=== PATIENT | male | born 1975 | race Caucasian/White ===

== ENCOUNTER 2017-08-23 18:39 | Inpatient (IN) | payer OTHER ==
[~2017-08-23] VITALS: Ht 175.2 cm; Wt 81.0 kg
--- NOTE | ~2017-08-23 | CON ---
[place], [place] REPORT OF CONSULTATION NAME: GEORGIA JAMA UNIT #: [id number] ROOM: 530 DOCTOR: ROSCOE COLBY MD BIRTHDATE: [birth year] DOS: 08/24/2017 REASON FOR CONSULTATION: Chest pain. HISTORY OF PRESENT ILLNESS: The patient is a 42-year-old man who has a history of atypical chest pain, which he believes is mostly brought on by stress. He has been evaluated in the past with a stress test in [place] about 3 years ago. At that time, he was told that everything looked good. Recently, he has been under considerable stress because of family issues with his mother in hospice. He has noticed for the last few weeks that his chest has been hurting. He specifically notes that his left upper outer chest is sore. Last evening after having supper with his mom, he developed chest pain with radiation to his neck, associated with dyspnea and lightheadedness. He became very concerned and therefore came to the Emergency Room. His electrocardiogram was negative and cardiac biomarkers have been negative. The patient does have risk factors of cigarette abuse. His lipids are mildly elevated. His father had a heart attack and a stroke. 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 He has had no surgeries. MEDICATIONS PRIOR TO ADMISSION: Aspirin 81 mg daily and propranolol 60 mg daily. ALLERGIES: The patient has no known drug allergies. REVIEW OF SYSTEMS: The patient denies diplopia or loss of vision. He denies syncope. He did have lightheadedness with chest pain last evening. He denies nausea or vomiting. He denies fevers, chills, sweats or recent weight change. He denies orthopnea or PND and denies focal weakness. He denies hemoptysis or hematemesis. He has had palpitations and chest discomfort as noted. He denies change in bowel or bladder habits. He denies blood in the stools or urine. He denies peripheral edema. He has not had any new skin rashes. He denies heat or cold intolerance and denies polyuria or polydipsia. The remainder of the review of systems is negative except as noted above. SOCIAL HISTORY: The patient smokes anywhere from a few cigarettes to a pack of cigarettes a day. He smokes more when he is under stress and has been under stress lately. He is physically active and does a lot of walking. PHYSICAL EXAMINATION: GENERAL: The patient is well-nourished white male who is awake, alert and oriented. VITAL SIGNS: Pulse is 60 and regular, blood pressure is 108/68. He is afebrile. He weighs 81 kg and has a body mass index of 26.4. HEENT: Normocephalic and atraumatic. Extraocular muscles are intact. Sclerae are clear. Pupils are equal, round and react to light. The oral mucosa is moist. Tongue is midline. NECK: Supple. He has no jugular distention. Carotids are full. He has no [place], [place] REPORT OF CONSULTATION NAME: GEORGIA JAAM UNIT #: [id number] ROOM: [facility] DOCTOR: ROSCOE COLBY MD BIRTHDATE: [birth year] bruits. He has no neck or supraclavicular masses. LUNGS: Respirations are unlabored. His chest is clear to auscultation and percussion. he has no presacral edema or chest wall tenderness. CARDIOVASCULAR: His heart has a regular rhythm. He has a fourth heart sound, but no third heart sound or murmur. The PMI is not displaced. There is no precordial heave, lift or thrill. ABDOMEN: Soft and normally active without masses, organomegaly or bruits. EXTREMITIES: Showed no edema. There are no cords or tenderness. Pedal pulses are full and equal bilaterally. LABORATORY DATA: I reviewed his electrocardiogram, it showed sinus rhythm and was a normal tracing. Serial cardiac biomarkers have been normal. Chest x-ray shows no cardiopulmonary processes. IMPRESSION: 1. Atypical chest pain. 2. Cigarette abuse. 3. Significant life stresses. PLAN: We will proceed with an exercise myocardial perfusion study. Further recommendations will depend upon the results of the stress test. The patient was encouraged to stop smoking and to try to practice some healthier lifestyle. I thank Dr. Johns for asking our advice regarding the patient's evaluation and care. ROSCOE COLBY MD CM:CONSTR:REPORT OF CONSULTATION 0935 08/24/17 0951 interface
--- NOTE | ~2017-08-23 | WRIGHTHP ---
[place], [place] PATIENT HISTORY AND PHYSICAL EXAM NAME: GEORGIA JAMA UNIT #: [id number] ROOM: 530 DOCTOR: CAMRON MARQUEZ MD BIRTHDATE: [birth year] DOS: 08/23/2017 HISTORY OF PRESENT ILLNESS: The patient is 42 years old. The patient was seen in the office on Monday with complaints of chest pain. He was advised admission, but refused. He was scheduled for a stress test as an outpatient. Yesterday, while he was driving, he had more chest pain associated with some dizziness and lightheadedness. He felt he was going to pass out. He has checked his blood pressure multiple times and felt it was going up. He has been at his mother's bedside for the last 30 days. She is sick and actively dying. He denies having any abdominal pain, nausea, any emesis, any fever, chills, any shortness of breath, or palpitations. PAST MEDICAL HISTORY: None significant. SOCIAL HISTORY: He has never been hospitalized. His father . His mother is actively dying from immunodeficiency. His siblings are healthy, they do not have any medical problems. 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 He has to go back to work tomorrow. OBJECTIVE: VITAL SIGNS: Graphic trend shows a pressure of 108/68, pulse of 61, respirations 20, temperature 97.7. LUNGS: Diminished breath sounds. No wheezes, rales or rhonchi heard. HEART: Regular. ABDOMEN: Obese, soft, nontender. EXTREMITIES: Without any edema. LABORATORY DATA: Within normal limits except for a vitamin D of 10. ASSESSMENT AND PLAN: 1. Precordial chest pain, ruled out for myocardial infarction. Awaiting a stress test. Cardiology consult obtained, echocardiogram was ordered. 2. The patient most likely has anxiety from his mother's illness and the fact that he has to go back to work tomorrow to [place]. The patient is a low risk for underlying heart disease, may need to see his PCP for some mild anxiety medications. [place], [place] PATIENT HISTORY AND PHYSICAL EXAM NAME: GEORGIA JAMA UNIT #: [id number] ROOM: 530 DOCTOR: CAMRON MARQUEZ MD BIRTHDATE: [birth year] CAMRON MARQUEZ MD CM:HISPHYS:PATIENT HISTORY AND PHYSICAL EXAMINATION 0940 CAMRON MARQUEZ MD 08/24/17 1014 interface
[~2017-08-23 18:39] MED LIST: AMOXICILLIN500 MG PO; ANAPROX DS550 MG PO; ANTIVERT/2525 MG PO; CLARITIN10 MG PO; FLAGYL500 MG PO; MOTRIN800 MG PO; NAPROSYN500 MG PO; NKHM; PENICILLIN VK500 MG PO; ROBITUSSIN-AC 160 ML PO; SEPTRA DS 800 M1 TAB PO; VIBRAMYCIN100 MG PO; ZOFRAN4 MG PO
[2017-08-23 19:05] VITALS: BP 126/74
[2017-08-23 19:06] LABS: HEMOGLOBIN 16.2 g/dl (14.0-18.0); MEAN CELL VOLUME 89.2 fl (80.0-94.0); MEAN CORPUSCULAR HGB 30.7 pg (27.0-31.0); MEAN CORPUSCULAR HGB CONC 34.5 g/dl (33.0-37.0); MEAN PLATELET VOLUME 11.7 fl (9.6-12.3); PLATELET COUNT AUTOMATED 243 10*3/uL (130-400); RED BLOOD COUNT 5.27 10*6/uL (4.50-5.90); WHITE BLOOD COUNT 13.1 10*3/uL (4.8-10.8)
[2017-08-23 19:13] VITALS: BP 132/89
[2017-08-23 19:19] LABS: ACT PARTIAL THROMBO TIME 23.3 SECONDS (20.8-31.5)
[2017-08-23 19:23] LABS: ALKALINE PHOSPHATASE 90 U/L (45-117); BUN 12 mg/dl (7-24); CHLORIDE 103 mmol/L (98-107); CREATININE 1.03 mg/dL (0.70-1.30); POTASSIUM 4.1 mmol/L (3.5-5.1); SGOT/AST 19 IU/L (3-35); SGPT/ALT 36 U/L (12-78); SODIUM 138 mmol/L (136-145); TOTAL PROTEIN 7.6 gm/dL (6.4-8.2)
[2017-08-23 19:24] LABS: TROPONIN I < 0.015 ng/ml (<0.045)
[2017-08-23 19:25] LABS: BASOPHILS 2 % (0-1); PLATELET SUFFICIENCY NORMAL (NORMAL); TOTAL CELLS COUNTED 100 #CELLS
[2017-08-23 19:32] VITALS: BP 120/69
[2017-08-23 19:53] VITALS: BP 107/66
[2017-08-23 20:29] VITALS: BP 123/75
[2017-08-23] MEDS ORDERED: PROPRANOLOL HCL60 M1 PO (21:50)
[2017-08-23] MEDS ORDERED: ASPIRIN ADULT L81 M1 PO (21:50)
[2017-08-23 22:30] VITALS: BP 133/80
[2017-08-24] VITALS: BP 124/86
[2017-08-24 08:00] VITALS: BP 108/68
[2017-08-24 12:41] VITALS: BP 110/69
== END 2017-08-24 12:12 | disposition home or self-care (01) | DRG 313 ==
LOC: ED 18:39 → EDHOLD 21:12 → 5E 21:12
PROVIDERS: Emergency Medicine
PROC: 3E033HZ Introduction of Radioactive Substance into Peripheral Vein, Percutaneous Approach (ICD-10-PCS; principal; 2017-08-24)
PROC: 4A02XM4 Measurement of Cardiac Total Activity, External Approach (ICD-10-PCS; principal; 2017-08-24)
DX: R07.89 Other chest pain (principal); L51.1 Stevens-Johnson syndrome; F17.210 Nicotine dependence, cigarettes, uncomplicated; Z82.49 Family history of ischemic heart disease and other diseases of the circulatory system

== ENCOUNTER 2019-06-23 18:28 | Emergency (ER) | payer OTHER ==
[~2019-06-23] VITALS: Ht 175.2 cm; Wt 95.3 kg
[~2019-06-23 18:28] MED LIST changes: +ASPIRIN ADULT L81 M1 PO; +PROPRANOLOL HCL60 M1 PO
[2019-06-23 19:10] LABS: BASO # 0.1 10*3/uL (0.0-0.1); BASO % 0.8 % (0.0-1.0); EOS # 0.3 10*3/uL (0.0-0.4); EOS % 2.4 % (1.0-4.0); HEMATOCRIT 50.2 % (42.0-52.0); HEMOGLOBIN 16.9 g/dl (14.0-18.0); LYMPH % 30.8 % (27.0-41.0); MEAN CELL VOLUME 90.1 fl (80.0-94.0); MEAN CORPUSCULAR HGB 30.3 pg (27.0-31.0); MEAN CORPUSCULAR HGB CONC 33.7 g/dl (33.0-37.0); MEAN PLATELET VOLUME 11.6 fl (9.6-12.3); MONO # 1.1 10*3/uL (0.1-1.0); MONO % 8.1 % (3.0-9.0); NEUT # 7.4 10*3/uL (2.3-7.9); NEUT % 57.4 % (47.0-73.0); PLATELET COUNT AUTOMATED 230 10*3/uL (130-400); RED BLOOD COUNT 5.57 10*6/uL (4.50-5.90); RED CELL DISTRI WIDTH 12.9 % (0-14.5)
[2019-06-23 19:25] LABS: ALBUMIN 3.7 gm/dl (3.1-4.5); ALKALINE PHOSPHATASE 84 U/L (45-117); BUN 10 mg/dl (7-24); CHLORIDE 108 mmol/L (98-107); CREATININE 1.03 mg/dL (0.70-1.30); POTASSIUM 3.7 mmol/L (3.5-5.1); SGOT/AST 19 IU/L (3-35); SGPT/ALT 41 U/L (12-78); SODIUM 139 mmol/L (136-145); TOTAL PROTEIN 7.2 gm/dL (6.4-8.2)
[2019-06-23 19:47] VITALS: BP 131/86
[2019-06-23] MEDS ORDERED: PREDNISONE20 M1 PO (20:16)
== END 2019-06-23 20:25 | disposition home or self-care (01) ==
LOC: ED 18:28
PROVIDERS: Physician Assistant
DX: R11.10 Vomiting, unspecified (principal); L27.0 Generalized skin eruption due to drugs and medicaments taken internally; T43.225A Adverse effect of selective serotonin reuptake inhibitors, initial encounter; R22.0 Localized swelling, mass and lump, head; Z88.8 Allergy status to other drugs, medicaments and biological substances; Z79.899 Other long term (current) drug therapy; Z79.82 Long term (current) use of aspirin; Y92.89 Other specified places as the place of occurrence of the external cause

== ENCOUNTER 2019-11-01 16:12 | Observation (INO) | payer OTHER ==
[~2019-11-01] VITALS: Ht 175.2 cm; Wt 86.8 kg
[2019-11-01] VITALS: BP 141/77
[~2019-11-01 16:12] MED LIST changes: +PREDNISONE20 M1 PO
[2019-11-01 16:24] VITALS: BP 164/95
[2019-11-01 16:49] LABS: BASO # 0.1 10*3/uL (0.0-0.1); BASO % 0.5 % (0.0-1.0); EOS # 0.3 10*3/uL (0.0-0.4); EOS % 1.7 % (1.0-4.0); HEMATOCRIT 47.8 % (42.0-52.0); LYMPH # 3.6 10*3/uL (1.3-4.4); LYMPH % 23.7 % (27.0-41.0); MEAN CELL VOLUME 94.7 fl (80.0-94.0); MEAN CORPUSCULAR HGB 31.9 pg (27.0-31.0); MEAN CORPUSCULAR HGB CONC 33.7 g/dl (33.0-37.0); MEAN PLATELET VOLUME 10.4 fl (9.6-12.3); MONO % 6.7 % (3.0-9.0); NEUT % 66.5 % (47.0-73.0); PLATELET COUNT AUTOMATED 241 10*3/uL (130-400); RED BLOOD COUNT 5.05 10*6/uL (4.50-5.90); RED CELL DISTRI WIDTH 13.7 % (0-14.5)
[2019-11-01 16:58] LABS: ACT PARTIAL THROMBO TIME 24.1 SECONDS (20.0-32.1); INTERNATIONAL NORM RATIO 0.9 (2.0-3.5)
[2019-11-01 17:06] LABS: ALBUMIN 3.5 gm/dl (3.1-4.5); ALKALINE PHOSPHATASE 81 U/L (45-117); BUN 12 mg/dl (7-24); CHLORIDE 105 mmol/L (98-107); CREATININE 1.01 mg/dL (0.70-1.30); POTASSIUM 3.7 mmol/L (3.5-5.1); SGOT/AST 14 IU/L (3-35); SGPT/ALT 38 U/L (12-78); SODIUM 138 mmol/L (136-145); TOTAL PROTEIN 6.9 gm/dL (6.4-8.2)
[2019-11-01 17:08] LABS: TROPONIN I < 0.015 ng/ml (<0.045)
[2019-11-01 17:48] VITALS: BP 114/88
[2019-11-01 18:42] VITALS: BP 144/88
[2019-11-01] MEDS ORDERED: LIPITOR40 MG PO (18:42)
[2019-11-01] MEDS ORDERED: OMEPRAZOLE20 M2 PO (18:43)
[2019-11-01 20:00] VITALS: BP 144/88
--- NOTE | 2019-11-01 20:12 | NUR ---
24 HR chart check completed.
--- NOTE | 2019-11-01 21:00 | NUR ---
RESTING IN BED WITH NO ACUTE DISTRESS NOTED. RESPIRATIONS EASY. LUNGS DIMINISHED, CLEAR. PULSE OX 97% RA. DENIES CHEST PAIN. CALL LIGHT WITHIN REACH. NO VOICED COMPLAINTS.
--- NOTE | 2019-11-01 23:04 | NUR ---
MEDICATED WITH TYLENOL PER PRN ORDER FOR COMPLAINTS OF HEADACHE RATING A 5. CALL LIGHT WITHIN REACH. WILL MONITOR
[2019-11-02] VITALS: BP 141/77
--- NOTE | 2019-11-02 | NUR ---
MEDS APPEAR EFFECTIVE. SLEEPING. RESPIRATIONS EASY. VSS. CALL LIGHT WITHIN REACH.
--- NOTE | 2019-11-02 06:00 | NUR ---
SLEPT THROUGHOUT NIGHT WITH NO DISTRESS NOTED. RESPIRATIONS EASY. DENIES CHEST PAIN. CALL LIGHT WITHIN REACH. NO VOICED COMPLAINTS THIS SHIFT
--- NOTE | 2019-11-02 11:04 | NUR ---
PT SIGNED OUT AGAINST MEDICAL ADVICE AT THIS TIME. HEPLOCK AND ENTRY ANALYST REMOVED BEFORE DEPARTURE.
== END 2019-11-02 11:04 | disposition left against medical advice (07) ==
LOC: ED 16:12 → 4E 18:24
PROVIDERS: Emergency Medicine; ADMIT Internal Medicine
DX: R07.89 Other chest pain (principal)

== ENCOUNTER → 2020-09-09 | Outpatient (CLI) | payer SELFPAY ==
[~2020-09-09] MED LIST changes: +LIPITOR40 MG PO; +OMEPRAZOLE20 M2 PO
== END | disposition home or self-care (01) ==
LOC: LAB 15:05
PROVIDERS: ATTEND Nurse Practitioner
DX: J06.9 Acute upper respiratory infection, unspecified (principal)

== ENCOUNTER 2020-12-09 07:11 | Emergency (ER) | payer OTHER ==
[~2020-12-09] VITALS: Wt 88.5 kg
[2020-12-09 07:42] LABS: BASO # 0.1 10*3/uL (0.0-0.1); BASO % 0.8 % (0.0-1.0); EOS # 0.4 10*3/uL (0.0-0.4); EOS % 4.3 % (1.0-4.0); HEMATOCRIT 46.6 % (42.0-52.0); LYMPH # 3.2 10*3/uL (1.3-4.4); LYMPH % 35.4 % (27.0-41.0); MEAN CELL VOLUME 88.8 fl (80.0-94.0); MEAN CORPUSCULAR HGB 30.7 pg (27.0-31.0); MEAN CORPUSCULAR HGB CONC 34.5 g/dl (33.0-37.0); MEAN PLATELET VOLUME 10.9 fl (9.6-12.3); MONO # 0.8 10*3/uL (0.1-1.0); MONO % 8.7 % (3.0-9.0); NEUT # 4.5 10*3/uL (2.3-7.9); NEUT % 50.6 % (47.0-73.0); PLATELET COUNT AUTOMATED 236 10*3/uL (130-400); RED BLOOD COUNT 5.25 10*6/uL (4.50-5.90); RED CELL DISTRI WIDTH 13.7 % (0-14.5); WHITE BLOOD COUNT 8.9 10*3/uL (4.8-10.8)
[2020-12-09] MEDS ORDERED: ATIVAN0.5 MG PO (07:42)
[2020-12-09 07:52] LABS: ACT PARTIAL THROMBO TIME 25.7 SECONDS (20.0-32.1)
[2020-12-09 08:00] LABS: ALBUMIN 3.4 gm/dl (3.1-4.5); ALKALINE PHOSPHATASE 94 U/L (45-117); BUN 7 mg/dl (7-24); CHLORIDE 108 mmol/L (98-107); CREATININE 0.97 mg/dL (0.70-1.30); LIPASE 90 U/L (73-393); POTASSIUM 3.9 mmol/L (3.5-5.1); SGOT/AST 14 IU/L (3-35); SGPT/ALT 34 U/L (12-78); SODIUM 139 mmol/L (136-145); TOTAL PROTEIN 6.9 gm/dL (6.4-8.2)
[2020-12-09 08:02] LABS: TROPONIN I < 0.015 ng/ml (<0.045)
[2020-12-09 09:54] VITALS: BP 126/71
[2020-12-09] MEDS ORDERED: Motrin,Rufen800 MG PO (10:19)
== END 2020-12-09 10:23 | disposition home or self-care (01) ==
LOC: ED 07:11
PROVIDERS: Emergency Medicine
DX: S16.1XXA Strain of muscle, fascia and tendon at neck level, initial encounter (principal); R42 Dizziness and giddiness; R51.9 Headache, unspecified; Z79.899 Other long term (current) drug therapy; X58.XXXA Exposure to other specified factors, initial encounter; Y93.89 Activity, other specified; Y92.89 Other specified places as the place of occurrence of the external cause; Y99.8 Other external cause status

== ENCOUNTER 2022-02-22 11:40 | Emergency (ER) | payer OTHER ==
[~2022-02-22] VITALS: Wt 79.4 kg
[~2022-02-22 11:40] MED LIST changes: +ATIVAN0.5 MG PO; +Motrin,Rufen800 MG PO
[2022-02-22 11:48] VITALS: BP 129/81
[2022-02-22] MEDS ORDERED: PROVENTIL HFA6.7 GM INH (14:15)
[2022-02-22] MEDS ORDERED: PREDNISONE20 M1 PO (14:15)
== END 2022-02-22 14:24 | disposition home or self-care (01) ==
LOC: ED 11:40
DX: R53.83 Other fatigue (principal); Z20.822 Contact with and (suspected) exposure to COVID-19; R50.9 Fever, unspecified; R11.10 Vomiting, unspecified

== ENCOUNTER 2022-07-19 08:52 | Emergency (ER) | payer OTHER ==
[~2022-07-19] VITALS: Ht 182.8 cm; Wt 104.3 kg
[~2022-07-19 08:52] MED LIST changes: +PROVENTIL HFA6.7 GM INH
[2022-07-19 09:31] VITALS: BP 145/89
[2022-07-19 09:37] LABS: BASO # 0.1 10*3/uL (0.0-0.1); BASO % 0.7 % (0.0-1.0); EOS # 0.3 10*3/uL (0.0-0.4); EOS % 2.7 % (1.0-4.0); HEMATOCRIT 47.9 % (42.0-52.0); LYMPH # 3.2 10*3/uL (1.3-4.4); LYMPH % 31.5 % (27.0-41.0); MEAN CELL VOLUME 88.7 fl (80.0-94.0); MEAN CORPUSCULAR HGB 29.8 pg (27.0-31.0); MEAN CORPUSCULAR HGB CONC 33.6 g/dl (33.0-37.0); MEAN PLATELET VOLUME 10.4 fl (9.6-12.3); MONO # 0.8 10*3/uL (0.1-1.0); MONO % 7.7 % (3.0-9.0); NEUT # 5.7 10*3/uL (2.3-7.9); NEUT % 56.3 % (47.0-73.0); PLATELET COUNT AUTOMATED 301 10*3/uL (130-400); RED CELL DISTRI WIDTH 13.2 % (0-14.5); WHITE BLOOD COUNT 10.2 10*3/uL (4.8-10.8)
[2022-07-19 09:53] LABS: ALKALINE PHOSPHATASE 100 U/L (46-116); BUN 9 mg/dl (9-23); CHLORIDE 104 mmol/L (98-107); POTASSIUM 3.9 mmol/L (3.4-5.1); SGPT/ALT 37 U/L (10-49)
== END 2022-07-19 11:00 | disposition home or self-care (01) ==
LOC: ED 08:52
PROVIDERS: Emergency Medicine
DX: U07.1 COVID-19 (principal); Z87.891 Personal history of nicotine dependence

== ENCOUNTER 2024-08-17 13:32 | Emergency (ER) | payer OTHER ==
[~2024-08-17] VITALS: Ht 175.2 cm; Wt 79.1 kg
[2024-08-17] MEDS ORDERED: Ondansetron Hydrochloride 4 MG/2 ML VIAL IV ONE (14:25)
[2024-08-17] MEDS ORDERED: SODIUM CHLORIDE 0.9% 1,000 ML IV ONE (14:25)
[2024-08-17] MEDS ORDERED: FAMOTIDINE 20 MG TAB PO ONE (14:30)
[2024-08-17 14:38] LABS: BASO # 0.1 10*3/uL (0.0-0.1); BASO % 0.6 % (0.0-1.0); EOS % 0.1 % (1.0-4.0); HEMATOCRIT 47.2 % (42.0-52.0); MEAN CORPUSCULAR HGB 30.6 pg (27.0-31.0); MEAN CORPUSCULAR HGB CONC 33.3 g/dl (33.0-37.0); MEAN PLATELET VOLUME 9.8 fl (9.6-12.3); MONO # 1.1 10*3/uL (0.1-1.0); MONO % 13.6 % (3.0-9.0); NEUT # 5.1 10*3/uL (2.3-7.9); NEUT % 65.3 % (47.0-73.0); PLATELET COUNT AUTOMATED 257 10*3/uL (130-400); RED BLOOD COUNT 5.13 10*6/uL (4.50-5.90); RED CELL DISTRI WIDTH 13.5 % (0-14.5); WHITE BLOOD COUNT 7.9 10*3/uL (4.8-10.8)
[2024-08-17 14:59] LABS: ALKALINE PHOSPHATASE 99 U/L (46-116); BUN 7 mg/dl (9-23); CHLORIDE 103 mmol/L (98-107); SGPT/ALT 18 U/L (5-49); TOTAL PROTEIN 7.5 gm/dL (6.0-8.0)
[2024-08-17] MEDS ORDERED: Ondansetron4 MG PO (15:32)
[2024-08-17 16:00] VITALS: BP 135/96
== END 2024-08-17 15:28 | disposition home or self-care (01) ==
LOC: ED 13:32
PROVIDERS: Nurse Practitioner
DX: A08.11 Acute gastroenteropathy due to Norwalk agent (principal); I10 Essential (primary) hypertension; F17.200 Nicotine dependence, unspecified, uncomplicated; Z79.899 Other long term (current) drug therapy; Z20.822 Contact with and (suspected) exposure to COVID-19

== ENCOUNTER 2025-06-26 11:23 | Emergency (ER) | payer OTHER ==
[~2025-06-26] VITALS: Wt 83.9 kg
[~2025-06-26 11:23] MED LIST changes: +Ondansetron4 MG PO
[2025-06-26 11:34] VITALS: BP 147/95
[2025-06-26] MEDS ORDERED: diphenhydrAMINE HCL;LIDO HCL 1 OZ OZ PO ONE (12:15)
[2025-06-26] MEDS ORDERED: MG-AL HYDROXIDE/SIMETICONE 30 ML UDC PO ONE (12:20)
[2025-06-26] MEDS ORDERED: diphenhydrAMINE hydrochloride 25 MG/10 ML UDC PO ONE (12:20)
[2025-06-26] MEDS ORDERED: MED. FROM HOME 1 EACH EA PO ONE (12:20)
[2025-06-26] MEDS ORDERED: PREDNISONE20 M1 PO (13:41)
[2025-06-26] MEDS ORDERED: AMOX-CLAV 875-1 EACH PO (13:41)
== END 2025-06-26 13:46 | disposition home or self-care (01) ==
LOC: ED 11:23
DX: J03.90 Acute tonsillitis, unspecified (principal); J06.9 Acute upper respiratory infection, unspecified; I10 Essential (primary) hypertension; Z20.822 Contact with and (suspected) exposure to COVID-19